=== PATIENT | female | born 1985 | race Caucasian/White ===

== ENCOUNTER → 2017-01-03 | Day surgery (SDC) | payer OTHER ==
[2016-12-19 10:03] VITALS: Ht 170.2 cm; Wt 76.4 kg
[~2017-01-03] VITALS: Ht 170.2 cm; Wt 76.4 kg
[~2017-01-03] MED LIST: ALBU18002 INH; ATROPINE SULFATE 0.1 MG/ML 5ML SYR IV PRN; BENZOIN SPRAY 118 ML BTL TOP ONE; BUPIVACAINE 0.5 % 5 MG/1 ML MPF 30ML VIAL ONE; BUPIVACAINE/EPINEPHRINE 0.5% MPF 1:200,000 30 ML VIAL ONE; CEFOXITIN SOD 2000MG IV SCH; CEPH500C2 PO; DEXAMETHASONE SOD INJ 4 MG/ML VIAL ONE; DIPH25CA65 PO; DROS1TAB24 PO; EpHEDrine SULFATE INJ 50 MG/ML AMP IV PRN; FENTANYL CITRATE INJ 50 MCG/1 ML 2 ML VIAL IV PRN; FENTANYL CITRATE INJ 50 MCG/1 ML 2 ML VIAL ONE; FLUMAZENIL 0.1 MG/1 ML 10 ML VIAL IV ONE; GLYCOPYRROLATE INJ 0.2 MG/ML VIAL ONE; HYDR-5688 PO; HYDROCODONE/ACETAMOPHEN 5/325MG TAB PO PRN; KETOROLAC TROMETHAMINE 30 MG/ML VIAL ONE; LACTATED RINGER'S 1000ML 1,000 ML IV SCH; LIDOCAINE HCL 2% 2 ML VIAL (20MG/ML) ONE; MIDAZOLAM HCL 1 MG/ML 2ML VIAL ONE; MONT1TAB3 PO; NEOSTIGMINE METHYLSULFATE 5 MG/5 ML SYR ONE; ONDANSETRON INJ 2 MG/ML 2 ML VIAL ONE; POLY335019 PO; PROPOFOL IV EMULSION 10 MG/ML 20 ML VIAL IV ONE; SODIUM CHLORIDE 0.9% 1000ML 1,000 ML IV SCH
--- NOTE | 2017-01-03 11:23 | [facility] Post Operative Brief Note ---
Immediate Operative Summary Operative Date Jan 03, 2017. Pre-Operative Diagnosis External Hemorrhoid Post-Operative Diagnosis 2 external hemorrhoids and thrombosed hemorrhoid Procedure(s) Performed External Hemorrhoid Excision x 2 and thrombectomy thrombosed hemorrhoid Surgeon Dr. Clark [employer] Tr[employer] Surgeon(s) Hannah Skniner PA-C Estimated Blood Loss 5 mL Findings Rt sided thrombosed hemorrhoid 1 hemorrhoid may be inflammatory polyp Specimens A. External Hemorrhoids Anesthesia gen Complication(s) None Disposition Recovery Room / PACU
--- NOTE | 2017-01-03 11:31 | Discharge Instructions-SurgCtr ---
Discharge Instructions Date of Service Jan 03, 2017. Visit Reason for Visit: External Hemorrhoid Discharge Discharge Diagnosis / Problem: hemorrhoids Discharge Goals Goal(s): Decrease discomfort, Improve function, Improve disease control Activity Recommendations Activity Limitations: as noted below Lifting Limitations: no more than 10 pounds Exercise/Sports Limitations: until after follow-up appointment May Resume Sexual Activity: when tolerated Shower/Bathe: no limitations (may take warm tub soaks) Driving or Machine Use: resume 1 day after discharge SPECIAL CARE INSTRUCTIONS: * will have some drainage and need to wear a pad for 1-2 weeks * * Avoid constipation- use miralax and or Metamucil twice daily and drink fluids may also use Senokot S twice daily for 1-2 weeks * May use ibuprofen for pain as tolerated. * Expect some swelling and bruising. Call your doctor if: * Temperature above 101 degrees * Pain not relieved by pain medicine ordered * There is increased drainage or redness from any incision * You have any unanswered questions or concerns [phone]. FOLLOW UP VISIT: If not already scheduled, please call the office for a follow-up visit. for 2 weeks- check up- all sutures will dissolve - none need to be removed OFFICE PHONE NUMBER: Dr. Clark Office Anesthesia . Post Anesthesia Instructions: If you have had General Anesthesia or IV Sedation: * Do not drive today. * Resume driving when surgeon permits. * Do not make important decisions or sign legal documents today. * Call surgeon for: 1. Temperature elevations greater than 101 degrees F. 2. Uncontrollable pain. 3. Excessive bleeding. 4. Persistent nausea and vomiting. 5. Medication intolerance (nausea, vomiting or rash). * For nausea and vomiting use only clear liquids such as: tea, soda, bouillon until nausea subsides, then gradually increase diet as tolerated. * If you have any concerns or questions, call your surgeon's office. If physician is unavailable and it is an emergency, call 911 or go to the nearest emergency room. . Diet Recommendations Home Diet: resume previous diet Procedures Procedures Performed: External Hemorrhoid Excision x 2 and thrombectomy thrombosed hemorrhoid Pending Studies Studies pending at discharge: no Medical Emergencies . Who to Call and When: Medical Emergencies: If at any time you feel your situation is an emergency, please call 911 immediately. . Non-Emergent Contact Non-Emergency issues call your: Surgeon . . "Provider Documentation" section prepared by Arturo Clark.
--- NOTE | 2017-01-03 11:46 | Anesthesia Progress Nt - [facility] ---
Anesthesia Post Op Note Date & Time Jan 03, 2017 at 11:46 Vital Signs Pain Intensity: 0 Vital Signs Past 12 Hours Date Time Temp Pulse Resp B/P Pulse Ox O2 Delivery O2 Flow Rate FiO2 01/03/17 11:28 36.8 105 18 123/83 100 Diffusion Mask 6 01/03/17 09:27 36.8 77 16 126/88 97 Room Air Notes Mental Status: alert / awake / arousable, participated in evaluation Pt Amnestic to Procedure: Yes Nausea / Vomiting: adequately controlled Pain: adequately controlled Airway Patency, RR, SpO2: stable & adequate BP & HR: stable & adequate Hydration State: stable & adequate Anesthetic Complications: no major complications apparent
[2017-01-03 12:20] VITALS: TEMP 36.6
[2017-01-03 12:52] VITALS: BP 129/89; PULSE 72; O2SAT 100
--- NOTE | 2017-01-03 15:52 | OPERATIVE REPORT ---
DATE OF OPERATION: 01/03/2017 NAME OF OPERATION: Excision of 2 external hemorrhoids and thrombectomy of a thrombosed hemorrhoid. FINDINGS: The patient had 2 chronic external hemorrhoids, one of which may have actually been an inflammatory polyp and also a thrombosed hemorrhoid on the right side. ANESTHESIA: General. STAFF SURGEON: Dr. Clark. CORE PILER: Lucio Skinner PA-C PROCEDURE: The patient was brought into the operating room and placed on the operating table in the prone position after appropriate anesthetic. Her buttocks were taped apart. On inspection, she had a large skin tag, which was most likely an old external hemorrhoid posteriorly and then on the left side, just inside the anus, she had a polypoid lesion, which appeared to be a chronic external hemorrhoid or an inflammatory polyp and then on the right side, she had a thrombosed hemorrhoid. Both of the hemorrhoidal areas were posteriorly and on the left were excised with the tissue oversewn and reapproximated using interrupted 2-0 chromic catgut suture and then the right thrombosed hemorrhoid was opened. Thrombectomy was performed and then it was closed using 2-0 chromic catgut suture. I was very careful not to take too much tissue during the excision. The patient seemed to tolerate the procedure very well. She was transferred to recovery room in stable condition. I attest to the content of the Intraoperative Record and any orders documented therein. Any exceptio ns are noted below.
== END | disposition home or self-care (01) ==
LOC: X.SURG 09:12
PROVIDERS: ATTEND Surgery
DX: K64.5 Perianal venous thrombosis (principal); K64.4 Residual hemorrhoidal skin tags